=== PATIENT | female | born 1945 | race Caucasian/White ===

== ENCOUNTER 2017-12-31 18:40 | Emergency (ER) | payer BC, MEDICARE ==
[2017-12-31 18:43] VITALS: BP 174/72; PULSE 70; RESP 20; TEMP 98; O2SAT 98
[2017-12-31] MEDS ORDERED: TETANUS/DIPHTHERIA TOXOID ADULT 0.5 ML VIAL IM ONE (19:15)
[2017-12-31] MEDS ORDERED: PANT20 PO (19:17)
[2017-12-31] MEDS ORDERED: METF1000 PO (19:17)
[2017-12-31] MEDS ORDERED: FLUO1TAB3 PO (19:17)
[2017-12-31] MEDS ORDERED: SYMB80AE INH (19:17)
[2017-12-31] MEDS ORDERED: LOVA20TA PO (19:17)
[2017-12-31] MEDS ORDERED: PLAV75TA29 PO (19:17)
[2017-12-31] MEDS ORDERED: ASPI81CH6 CHEW (19:17)
[2017-12-31] MEDS ORDERED: VERA80TA PO (19:17)
--- NOTE | 2017-12-31 19:20 | PD ---
HPI Chief Complaint: Musculoskeletal Complaint Time Seen by Provider: 19:04 Travel History International Travel<30 days: No Contact w/Intl Traveler<30days: No Traveled to known affect area: No History of Present Illness HPI Patient is a 72-year-old female who presents to the emergency department for right knee pain. The patient is currently vacationing from [place]. The patient states her last 2 days her right knee has "given out" several times. The patient states she has no pain, however, will suddenly feel weak, "give out", and she will fall to the ground landing on her right knee. She does have a history of previous meniscal surgery on the right knee. She does not have a local primary physician or orthopedic surgeon. She does note abrasion with some swelling of the anterior aspect of the right knee. She has been using crutches that a neighbor gave to her earlier today. She denies any numbness or tingling to the right lower extremity. She cannot recall her last tetanus shot. Symptoms are moderate. She denies any other injuries. PFSH Past Medical History Cerebrovascular Accident: Yes (x3) Diabetes: Yes Patient Takes Glucophage: Yes Diminished Hearing: No GERD: Yes Hypertension: Yes Tetanus Vaccination: Unknown Tubal Ligation: Yes Past Surgical History Narrative Surgical Tubal ligation, right knee surgery, cholecystectomy Cholecystectomy: Yes Social History Alcohol Use: Yes (occ) Tobacco Use: No Substance Use: No Allergies-Medications (Allergen,Severity, Reaction): Coded Allergies: No Known Allergies (Unverified , 12/31/17) Reported Meds & Prescriptions Reported Meds & Active Scripts Active Reported Symbicort Inh (Budesonide/Formoterol Fumarate) 80-4.5 Mcg/Act Aero 1 Puff INH Q12HR Aspirin Low Dose (Aspirin) 81 Mg Chew 81 Mg CHEW DAILY Lovastatin 20 Mg Tab 20 Mg PO DAILY Plavix (Clopidogrel Bisulfate) 75 Mg Tab 75 Mg PO DAILY Protonix (Pantoprazole Sodium) 20 Mg Tab 20 Mg PO DAILY Verapamil (Verapamil HCl) 80 Mg Tab 80 Mg PO BID Fluoxetine (Fluoxetine HCl) 20 Mg Tab 20 Mg PO DAILY Metformin (Metformin HCl) 1,000 Mg Tab 1,000 Mg PO BIDPC Review of Systems Except as stated in HPI: all other systems reviewed are Neg Musculoskeletal: Positive: Weakness, Pain Skin: Positive Other (Abrasion to the right knee) Neurologic: No: Paresthesia, Sensory Disturbance Physical Exam Narrative GENERAL: Awake, alert, pleasant 72-year-old female who appears her stated age and is in no acute respiratory distress. SKIN: Focused skin assessment warm/dry. HEAD: Atraumatic. Normocephalic. EYES: No injection or drainage. MUSCULOSKELETAL: Small area of swelling over the anterior and inferior aspect of the right patella. Abrasion noted. Patella is midline. The patient is able flex and extend the knee completely, pain with extension and flexion of the knee is 5 out of 5. Positive right dorsalis pedal pulse. Some burn noted to the feet bilaterally. Abrasion noted over the anterior aspect of the right knee. NEUROLOGICAL: Awake and alert. No obvious cranial nerve deficits. Motor grossly within normal limits. Normal speech. Sensation is intact with medial, lateral, dorsal aspect of the right foot. PSYCHIATRIC: Appropriate mood and affect; insight and judgment normal. Data Data Last Documented VS Vital Signs Date Time Temp Pulse Resp B/P (MAP) Pulse Ox O2 Delivery O2 Flow Rate FiO2 12/31/17 18:43 98.0 70 20 174/72 (106) 98 Orders Orders Tetanus/Diphtheria Tox Adult (Tetanus/Di (12/31/17 19:15) Knee, Complete (4vws) (12/31/17 ) Bag, Ice Stay Dry Ea (12/31/17 19:14) Wound Care (12/31/17 19:14) MDM Medical Decision Making Medical Screen Exam Complete: Yes Emergency Medical Condition: Yes Medical Record Reviewed: Yes Interpretation(s) X-ray of the right knee complete reveals no acute fracture or subluxation of the right knee. Prepatellar soft tissue swelling and possible contusion/strain of the extensor mechanism. Old, healed fracture the proximal shaft of the fibula. Medial compartment predominant degenerative changes. Differential Diagnosis Differential diagnosis includes abrasion, contusion, fracture, sprain, strain, ligament injury, knee instability. Narrative Course 4 view x-ray of the right knee was obtained. The patient's wound was cleaned, Polysporin and a dressing were applied. An ice pack was then applied over the right knee. Tetanus shot was updated. The patient declined pain medication including Tylenol in the emergency department. X-ray of the right knee reveals no acute fracture or subluxation of the right knee, did reveal prepatellar soft tissue swelling possible contusion/strain of the extensor mechanism. Also revealed old, healed fracture the proximal shaft of the fibula and medial compartment predominant degenerative changes. The patient will be given a DVD of her x-ray and will be placed in a knee immobilizer. She is advised to follow -up with an orthopedist. Elevate, ice, and wound care instructions will be given. Diagnosis Primary Impression: Instability of right knee joint Additional Impression: Abrasion Patient Instructions: General Instructions Additional Instructions: Please provide the patient a copy of the report of her x-ray as well as a DVD of her x-ray of the right knee. Wound care instructions for the right knee. Knee immobilizer as needed. Continue to wear crutches. Follow-up with your orthopedist upon return to [place]. Disposition: 01 DISCHARGE HOME Condition: Stable Napoleon Wilde MD Dec 31, 2017 19:20
--- NOTE | 2017-12-31 19:32 | RADRPT ---
EXAM DATE/TIME: 12/31/2017 19:22 [facility] COMPARISON: No previous studies available for comparison. INDICATIONS : Right anterior knee pain with abrasion, fell MEDICAL HISTORY : SURGICAL HISTORY : None. ENCOUNTER: Initial ACUITY: 1 day PAIN SCORE: 4/10 LOCATION: Right Knee FINDINGS: There is mild prepatellar soft tissue swelling. Potentially a strain or contusion of the proximal pat ellar tendon and distal quadriceps. No evidence of tear. No radiopaque foreign body. Old, healed proximal shaft fracture of the fibula. There is no acute fracture or subluxation of the r ight knee. No significant joint effusion. 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 CONCLUSION: 1. No acute fracture or subluxation of the right knee. 2. Prepatellar soft tissue swelling and possible contusion/strain of the extensor mechanism. 3. Old, healed fracture of the proximal shaft of the fibula. 4. Medial compartment predominant degenerative changes. Florentin Crespo MD on December 31, 2017 at 19:29 Board Certified Radiologist. This report was verified electronically.
== END 2017-12-31 20:45 | disposition home or self-care (01) ==
LOC: NEPC 18:40
DX: M25.361 Other instability, right knee (principal); S80.211A Abrasion, right knee, initial encounter; W19.XXXA Unspecified fall, initial encounter; K21.9 Gastro-esophageal reflux disease without esophagitis; Z86.73 Personal history of transient ischemic attack (TIA), and cerebral infarction without residual deficits; I10 Essential (primary) hypertension; E11.9 Type 2 diabetes mellitus without complications; Z23 Encounter for immunization
CPT/HCPCS: 73564; 90471; 90714